=== PATIENT | female | born 1940 | race Caucasian/White ===

== ENCOUNTER 2022-03-10 12:32 | Emergency (ER) | payer MEDICARE, OTHER ==
[2022-03-10 13:19] LABS: RED BLOOD COUNT 2.17 M/UL (4.00-5.10); WHITE BLOOD COUNT 9.5 K/UL (4.5-11.0)
[2022-03-10 13:51] LABS: BUN/CREATININE RATIO 37 (0-10)
== END 2022-03-11 01:35 | disposition short-term general hospital (02) ==
LOC: ER1 12:32
PROVIDERS: Emergency Medicine
DX: K92.2 Gastrointestinal hemorrhage, unspecified (principal); I25.10 Atherosclerotic heart disease of native coronary artery without angina pectoris; E78.5 Hyperlipidemia, unspecified; I10 Essential (primary) hypertension; Z20.822 Contact with and (suspected) exposure to COVID-19
CPT/HCPCS: 36430; 70450; 71045; 80053; 81001; 82270; 82550; 82553; 82607; 82728; 82746; 83540; 83550; 83605; 84484; 85018; 85025; 85610; 85730; 86850; 86900; 86901; 86920; 93005; 96374; 99285; C9113; J7050; P9016; Q9967; U0002